=== PATIENT | male | born 1955 | race Hispanic/Latino ===

== ENCOUNTER 2018-02-11 07:35 | Day surgery (SDC) | payer OTHER ==
[~2018-02-11] VITALS: Ht 172.7 cm; Wt 111.6 kg
[2018-02-11 08:45] VITALS: BP 137/43
[2018-02-11] MEDS ORDERED: AMLO10TA6 PO (09:05)
[2018-02-11] MEDS ORDERED: SIMV5TAB6 PO (09:05)
[2018-02-11] MEDS ORDERED: DICY20TA11 PO (09:05)
[2018-02-11] MEDS ORDERED: BENA5TAB6 PO (09:05)
[2018-02-11] MEDS ORDERED: SODIUM CHLORIDE 0.9% 1000ML 1,000 ML IV ONE (09:08)
[2018-02-11] MEDS ORDERED: PROPOFOL 10 MG/ML 20ML VIAL IV ONE ×2 (09:56→10:10)
[2018-02-11 10:31] VITALS: BP 126/69
[2018-02-11 10:37] VITALS: BP 126/74
[2018-02-11 10:45] VITALS: BP 132/76
== END 2018-02-11 11:01 | disposition home or self-care (01) ==
LOC: DAH 07:35 → ENDO 07:35
PROVIDERS: ATTEND Internal Medicine Gastroenterology
DX: K63.5 Polyp of colon (principal); K57.30 Diverticulosis of large intestine without perforation or abscess without bleeding; K29.50 Unspecified chronic gastritis without bleeding; I10 Essential (primary) hypertension; F41.9 Anxiety disorder, unspecified; F32.9 Major depressive disorder, single episode, unspecified; Z98.890 Other specified postprocedural states; Z79.899 Other long term (current) drug therapy; Z68.31 Body mass index [BMI] 31.0-31.9, adult; E78.5 Hyperlipidemia, unspecified; K31.89 Other diseases of stomach and duodenum
CPT/HCPCS: 43239; 45380; A4606; J2704 ×2; J7030

== ENCOUNTER → 2019-09-28 | Outpatient (CLI) | payer OTHER ==
[~2019-09-28] MED LIST: AMLO10TA7 PO; BENA5TAB6 PO; DICY20TA11 PO; ESOM40CA54 PO; LIDO30CR TP; NAPR-1023 PO; SIMV5TAB58 PO; SUCR1TAB2 PO; [UNRECOGNIZED DRUG - CODE] RC
== END ==
LOC: DAH 10:00 → EDSTATUS 10-15 07:30
PROVIDERS: ATTEND Internal Medicine
DX: Z01.818 Encounter for other preprocedural examination (principal); K92.2 Gastrointestinal hemorrhage, unspecified; K62.89 Other specified diseases of anus and rectum; Z11.59 Encounter for screening for other viral diseases
CPT/HCPCS: 36415; U0003

== ENCOUNTER 2019-11-12 06:40 | Day surgery (SDC) | payer OTHER ==
[~2019-11-12 06:40] MED LIST changes: -DICY20TA11 PO
[2019-11-12] MEDS ORDERED: PROPOFOL 10 MG/ML 20ML VIAL IV ONE (06:48)
[2019-11-12 07:12] VITALS: BP 121/70
[2019-11-12 08:30] VITALS: BP 83/38
[2019-11-12 08:35] VITALS: BP 106/61
[2019-11-12 08:40] VITALS: BP 116/17
[2019-11-12 08:45] VITALS: BP 120/77
[2019-11-12 08:50] VITALS: BP 125/71
== END 2019-11-12 09:05 | disposition home or self-care (01) ==
LOC: DAH 06:40 → ENDO 06:40 → EDSTATUS 08:00 → ENDO 09:05
PROVIDERS: ATTEND Internal Medicine
DX: K62.89 Other specified diseases of anus and rectum (principal); K64.2 Third degree hemorrhoids; K57.30 Diverticulosis of large intestine without perforation or abscess without bleeding; Z86.010 Personal history of colon polyps; I10 Essential (primary) hypertension; F41.9 Anxiety disorder, unspecified; E78.5 Hyperlipidemia, unspecified; F32.9 Major depressive disorder, single episode, unspecified; Z98.890 Other specified postprocedural states; Z79.899 Other long term (current) drug therapy; Z11.59 Encounter for screening for other viral diseases
CPT/HCPCS: 45350; A4215; A4221; A4222; A4223; A4606; A4620; A4657; A4663; C9803; J2704; U0003

== ENCOUNTER → 2022-11-12 | Outpatient (CLI) | payer OTHER ==
[~2022-11-12] MED LIST changes: +AMLO-258 PO; -AMLO10TA7 PO; +ATEN50TA PO; -BENA5TAB6 PO; +DICY20TA2 PO; +ERGO500093 PO; -ESOM40CA54 PO; -LIDO30CR TP; +LIDO700A30 TP; +LORA10TA7 PO; -NAPR-1023 PO; +SIMV10TA97 PO; -SIMV5TAB58 PO; -SUCR1TAB2 PO; -[UNRECOGNIZED DRUG - CODE] RC
== END | disposition home or self-care (01) ==
LOC: RAH 09:11
PROVIDERS: ATTEND Neurological Surgery
DX: M43.22 Fusion of spine, cervical region (principal); Z98.890 Other specified postprocedural states
CPT/HCPCS: 72040

== ENCOUNTER → 2024-08-18 | Outpatient (CLI) | payer OTHER ==
--- NOTE | 2024-08-18 16:32 | HMCIMG ---
MR SPINAL CANAL, THORAC WO CON HISTORY: Spondylosis with myelopathy COMPARISON: None TECHNIQUE: MRI of the thoracic spine was performed utilizing multiple pulse sequences in axial, coronal and sagittal plane. Patient was not given contrast through intravenous route. FINDINGS: No abnormal signal intensity is seen of the visualized bony structure. No loss of vertebral height is seen. Degenerative disc signals are present at all thoracic spine levels. The thoracic cord is of normal signal intensity without cord compression or impingement. There is no focal disc herniation or neural foraminal stenosis. There may be minimal dextroscoliosis. IMPRESSION: 1. No focal disc herniation or neural foraminal stenosis is seen.
== END | disposition home or self-care (01) ==
LOC: RAH 14:50
PROVIDERS: ATTEND Neurological Surgery
DX: M51.04 Intervertebral disc disorders with myelopathy, thoracic region (principal); M47.14 Other spondylosis with myelopathy, thoracic region
CPT/HCPCS: 72146

== ENCOUNTER 2025-02-02 06:20 | Day surgery (SDC) | payer OTHER ==
[2025-02-02] VITALS (10 sets, daily range): BP systolic 104–125; BP diastolic 58–69; PULSE 58–71; RESP 15–17; TEMP 97.4–97.7
[~2025-02-02] VITALS: Ht 175.3 cm; Wt 83.0 kg
== END 2025-02-02 10:15 | disposition home or self-care (01) ==
LOC: CANSCHSDC → DAH 06:20 → ENDO 06:20
PROVIDERS: ATTEND Internal Medicine
DX: K59.00 Constipation, unspecified (principal); D12.3 Benign neoplasm of transverse colon; K29.50 Unspecified chronic gastritis without bleeding; K57.30 Diverticulosis of large intestine without perforation or abscess without bleeding; K62.89 Other specified diseases of anus and rectum; K62.1 Rectal polyp; I10 Essential (primary) hypertension; E78.5 Hyperlipidemia, unspecified; F32.A Depression, unspecified; F41.9 Anxiety disorder, unspecified; Z90.89 Acquired absence of other organs; Z86.0100 Personal history of colon polyps, unspecified; Z79.899 Other long term (current) drug therapy; Z98.890 Other specified postprocedural states
CPT/HCPCS: 43239; 45380; 45385; J2704; A4620; A4215 ×2; A4223; A4657; A7002; A4222; A4221; A4663; J7030; A4606; J3490